=== PATIENT | male | born 1995 | race Caucasian/White ===

== ENCOUNTER 2018-05-03 12:39 | Emergency (ER) | payer MEDICAID, OTHER ==
[~2018-05-03] VITALS: Ht 175.3 cm; Wt 79.0 kg
[2018-05-03] MEDS ORDERED: LORAZEPAM 2MG/ML CPJ IV STA (12:54)
[2018-05-03] MEDS ORDERED: HALOPERIDOL LACTATE 5MG/ML VIAL IM STA (12:54)
[2018-05-03 13:40] LABS: CLARITY URINE TURBID (CLEAR); COLOR URINE YELLOW (YELLOW); KETONES URINE NEGATIVE (NEGATIVE); LEUKOCYTE ESTERASE URINE NEGATIVE (NEGATIVE); NITRITE URINE NEGATIVE (NEGATIVE); OCCULT BLOOD URINE NEGATIVE (NEGATIVE); PH URINE 6.5 (4.5-8.0); PROTEIN URINE NEGATIVE (NEGATIVE); SPECIFIC GRAVITY URINE 1.021 (1.005-1.030); UROBILINOGEN URINE 0.2 E.U./dL (0.2-1.0)
[2018-05-03 14:06] LABS: *AMPHETAMINES SCREEN URINE PRESUMTIVE POSITIVE (NEGATIVE); *BARBITURATES SCREEN URINE NEGATIVE (NEGATIVE); *COCAINE SCREEN URINE NEGATIVE (NEGATIVE)
[2018-05-03 14:07] LABS: *BENZODIAZEPINES SCREEN URINE NEGATIVE (NEGATIVE); CANNABINOID URINE SCREEN PRESUMTIVE POSITIVE (NEGATIVE); METHADONE URINE SCREEN NEGATIVE (NEGATIVE); OPIATES URINE SCREEN NEGATIVE (NEGATIVE); PHENCYCLIDINE URINE SCREEN NEGATIVE (NEGATIVE)
[2018-05-03] MEDS ORDERED: ONDANSETRON HCL 4MG/2ML VIAL IV ONE (14:15)
[2018-05-03 14:37] LABS: BASOPHILS % 1.2 % (0.0-2.0); EOSINOPHILS % 2.1 % (0.0-5.0); HEMOGLOBIN. 13.7 g/dL (14.0-18.0); LYMPHOCYTES % 31.4 % (20.0-50.0); MEAN CORPUSCULAR HEMOGLOBIN 28.1 pg (28.0-32.0); MEAN CORPUSCULAR VOLUME 86.2 fL (80.0-94.0); MEAN PLATELET VOLUME 7.8 fl (7.4-10.4); MONOCYTES % 8.5 % (2.0-8.0); NEUTROPHILS % 56.8 % (40.0-76.0); PLATELET 185 x1000/uL (130-400); RED BLOOD CELL COUNT 4.87 mill/uL (4.7-6.1); RED CELL DISTRIBUTION WIDTH 15.5 % (11.6-14.6)
[2018-05-03 14:41] LABS: CHLORIDE 108 mEq/L (98-107)
[2018-05-03 14:42] LABS: PROTHROMBIN TIME 10.7 sec (9.4-11.6)
[2018-05-03 14:46] LABS: ETHANOL BLOOD 296 mg/dL
[2018-05-03 14:50] LABS: CREATINE KINASE 613 IU/L (39-308)
[2018-05-04 04:30] VITALS: BP 105/61
== END 2018-05-04 05:59 | disposition home or self-care (01) ==
LOC: EDBD 12:39 → ER 12:39
DX: G93.49 Other encephalopathy (principal); T51.0X1A Toxic effect of ethanol, accidental (unintentional), initial encounter; T43.621A Poisoning by amphetamines, accidental (unintentional), initial encounter; Y92.89 Other specified places as the place of occurrence of the external cause; Y90.8 Blood alcohol level of 240 mg/100 ml or more
CPT/HCPCS: 36415; 70450; 80053; 80305; 80307; 80329; 81003; 82550; 84443; 85025; 85610; 93005; 96372; 96374; 96375; 99285; G0482; J1630; J2060; J2405; Z7610